=== PATIENT | female | born 1985 | race Caucasian/White ===

== ENCOUNTER 2018-10-31 13:51 | Outpatient (CLI) | payer BC ==
[~2018-10-31 13:51] MED LIST: Iopamidol 370 76% 100 ML VIAL ONE; Iopamidol 370 76% 50 ML VIAL FS ONE
--- NOTE | 2018-10-31 15:55 | CT ---
CT Abdomen Pelvis W Con History: Left-sided pain Comparison: None. Findings: Lung bases are clear. No pericardial effusion. No free intraperitoneal gas or fluid. Mild wall thickening of the sigmoid colon and descending colon. No evidence for obstruction. Mild wall thickening of the terminal ileum. The appendix is felt to be visualized and appears normal. No hydronephrosis. Adrenal glands are unrem arkable. Concern for possible bilateral pars interarticularis defects. Asymmetric sclerosis of the right SI joint relative to the left. Liver and spleen are unremarkable. Mild degenerative disc space height loss L4/L5 with early right la teral disc osteophyte complex. Impression: 1. Normal appendix. 2. Mild circumferential wall thickening of the sigmoid colon, descending colon as well as the termina l ileum may be infectious or inflammatory. 3. Asymmetric right SI joint sclerosis. Recommend outpatient workup for inflammatory arthropathy.
== END 2018-10-31 13:52 | disposition home or self-care (01) ==
LOC: CT 13:51
DX: K52.9 Noninfective gastroenteritis and colitis, unspecified (principal); K21.9 Gastro-esophageal reflux disease without esophagitis; R10.32 Left lower quadrant pain; R19.4 Change in bowel habit; R12 Heartburn; R63.4 Abnormal weight loss; R13.10 Dysphagia, unspecified; M53.3 Sacrococcygeal disorders, not elsewhere classified; K63.89 Other specified diseases of intestine
CPT/HCPCS: 74177; Q9967

== ENCOUNTER 2018-11-11 12:33 | Emergency (ER) | payer BC ==
[2018-11-11] MEDS ORDERED: traMADol HCl 50 MG TAB ONE (14:09)
[2018-11-11] MEDS ORDERED: Ketorolac Tromethamine 60 MG/2 ML VIAL ONE (14:10)
--- NOTE | 2018-11-11 15:33 | MRI ---
MR the lumbar spine with and without contrast INDICATION: Status post sneezing and feeling a pop in the back causing severe back pain and numbness down anterior left leg; history of fall in May 2018. History of laminectomy at L4-5 last year COMPARISON: None. TECHNIQUE: Multiplanar multisequence MR images were obtained of lumbar spine with and without IV cont rast. Contrast: 15 cc of MultiHance. FINDINGS: Bone marrow: There is mild Modic endplate degenerative change at L4-5. Distal spinal cord and conus: Normal. Conus is seen to terminate at the T12 level. Visualized retroperitoneum and paraspinal soft tissues: Normal. No lymphadenopathy demonstrated. Vertebral levels: L5-S1: There is mild facet joint degenerative change and a broad-based bulge. The loss of disc space height in addition to the facet hypertrophy induces mild bilateral neural foraminal narrowing, left greater than right. There is subtle grade 1 anterolisthesis of L5 on S1. L4-5: There is postsurgical change consistent with a right L4-5 laminotomy. There is a mild broad-bas ed bulge and facet hypertrophy. The broad-based bulge in addition to facet hypertrophy induces mild bilateral neural foraminal narrowing. L3-4: There is a broad-based disc bulge with a superimposed central inferior projecting disc extrusio n measuring 8.5 mm. This causes mild ventral effacement of the subarachnoid space without definite nerve root compression. Broad-based bulge and facet hypertrophy at L3-4 induces mild bilateral neural foraminal narrowing. L2-3: No appreciable central canal or neuroforaminal narrowing. L1-L2: No appreciable central canal or neuroforaminal narrowing. T12-L1: No appreciable central canal or neuroforaminal narrowing. Postcontrast series: No abnormal enhancement demonstrated. IMPRESSION: 1. Central inferior projecting disc extrusion off L3-4 disc space induces mild ventral effacement of the thecal sac without nerve root compression. 2. Mild bilateral neural foraminal narrowing at L3-4 through L5-S1. 3. Mild grade 1 anterolisthesis of L5 on S1 is likely degenerative in nature.
[2018-11-11] MEDS ORDERED: Dexamethasone 4 mg/ml Vial ONE (15:46)
== END 2018-11-11 16:30 | disposition home or self-care (01) ==
LOC: ERS 12:33
DX: M54.16 Radiculopathy, lumbar region (principal); F41.9 Anxiety disorder, unspecified; F32.9 Major depressive disorder, single episode, unspecified; Z87.891 Personal history of nicotine dependence; Z79.899 Other long term (current) drug therapy
CPT/HCPCS: 72158; 96372; J1100; J1885

== ENCOUNTER 2022-04-07 14:34 | Outpatient (CLI) | payer BC | END 2022-04-07 14:35 | disposition home or self-care (01) | LOC: ULT 14:34 | PROVIDERS: ATTEND Student in an Organized Health Care Education/Training Program | DX: E03.9 Hypothyroidism, unspecified (principal) | CPT/HCPCS: 76536 ==